=== PATIENT | male | born 1965 | race Two or more races ===

== ENCOUNTER 2020-12-05 15:46 | Emergency (ER) | payer SELFPAY ==
[~2020-12-05] VITALS: Ht 175.3 cm; Wt 83.9 kg
[2020-12-05] MEDS ORDERED: SODIUM CHLORIDE 0.9% 1,000 ML IV ONE (16:30)
[2020-12-05] MEDS ORDERED: LORazepam 2MG/ML-1ML VIAL IV ONE (16:30)
[2020-12-05 16:59] LABS: Basophils # (auto) 0.1 10 ^3/uL (0-0.2); Basophils % (auto) 1.4 % (0.0-2.0); Eosinophils # (auto) 0 10 ^3/uL (0-0.8); Hematocrit 32.7 % (41.0-53.0); Hemoglobin 11.1 g/dL (13.5-17.5); Lymphocytes # (auto) 0.2 10 ^3/uL (0.4-5.4); Lymphocytes % (auto) 3.7 % (10.0-50.0); Mean Corpuscular Hemoglobin 30.5 pg (28.0-32.0); Mean Corpuscular Hgb Conc. 34.1 g/dL (32.0-36.0); Mean Corpuscular Volume 89.6 fL (80.0-100.0); Monocytes # (auto) 0.7 10 ^3/uL (0-1.3); Neutrophils # (auto) 5.4 10 ^3/uL (1.6-8.6); Neutrophils % (auto) 83.9 % (37.0-80.0); Nucleated Red Blood Cells % 0.1 %; Platelet Count (auto) 123 10^3/uL (140-450); Red Blood Cells 3.65 10^6/uL (4.5-5.90); White Blood Cell 6.4 10^3/uL (4.4-10.8)
[2020-12-05 17:15] LABS: Albumin 3.8 g/dL (3.4-5.0); Anion Gap 14 (5-15); Blood Alcohol < 3.0 mg/dL (0-5); Blood Urea Nitrogen 8 mg/dL (7-18); Calcium 8.4 mg/dL (8.5-10.1); Carbon Dioxide 24 mmol/L (21-32); Chloride 96 mmol/L (98-107); Glucose 145 mg/dL (74-106); Potassium 3.9 mmol/L (3.5-5.1); Sodium 134 mmol/L (136-145)
[2020-12-05 17:18] LABS: Alanine Aminotransferase 64 U/L (16-61); Alkaline Phosphatase 78 U/L (45-117); Aspartate Aminotransferase 107 U/L (15-37); BUN/Creatinine Ratio 9.8; Bilirubin, Total 1.4 mg/dL (0.2-1.0); GFR African American 125 mL/min; GFR Non-African American 104 mL/min; Total Protein 7.8 g/dL (6.4-8.2)
[2020-12-05 19:54] VITALS: BP 147/98
== END 2020-12-05 19:17 | disposition home or self-care (01) ==
LOC: EDBD 15:46 → ER 15:46
DX: F10.239 Alcohol dependence with withdrawal, unspecified (principal); R94.31 Abnormal electrocardiogram [ECG] [EKG]; Y90.0 Blood alcohol level of less than 20 mg/100 ml; Z90.49 Acquired absence of other specified parts of digestive tract; Z98.890 Other specified postprocedural states
CPT/HCPCS: 36415; 80053; 80320; 85025; 93005; 96361; 96374; 99285; J2060; J7030